=== PATIENT | male | born 1985 | race Hispanic/Latino ===

== ENCOUNTER 2021-07-19 00:36 | Emergency (ER) | payer OTHER ==
[~2021-07-19] VITALS: Ht 167.6 cm; Wt 69.4 kg
[2021-07-19 03:00] VITALS: BP 121/68
== END 2021-07-19 03:18 | disposition home or self-care (01) ==
LOC: EDH 00:36
DX: B34.9 Viral infection, unspecified (principal); Z20.822 Contact with and (suspected) exposure to COVID-19; F41.9 Anxiety disorder, unspecified; Z98.890 Other specified postprocedural states
CPT/HCPCS: 87635; 87804 ×2; 99283; C9803